=== PATIENT | female | born 1960 | race Caucasian/White ===

== ENCOUNTER 2022-04-04 17:28 | Emergency (ER) | payer MEDICAID ==
[~2022-04-04] VITALS: Ht 167.6 cm; Wt 77.1 kg
[2022-04-04] MEDS ORDERED: NAP500T PO (19:02)
[2022-04-04 20:58] VITALS: BP 137/84
== END 2022-04-04 21:39 | disposition home or self-care (01) ==
LOC: ER 17:28
DX: M25.561 Pain in right knee (principal); M19.90 Unspecified osteoarthritis, unspecified site; Z87.891 Personal history of nicotine dependence